=== PATIENT | male | born 1945 | race Caucasian/White ===

== ENCOUNTER → 2018-06-09 | Outpatient (CLI) | payer MEDICARE, OTHER | END | disposition home or self-care (01) | LOC: CFH 09:37 | PROVIDERS: ATTEND Emergency Medicine | DX: R10.32 Left lower quadrant pain (principal); R09.89 Other specified symptoms and signs involving the circulatory and respiratory systems | CPT/HCPCS: 76857; 93978 ==

== ENCOUNTER 2018-12-24 09:32 | Outpatient (CLI) | payer MEDICARE, OTHER | END 2018-12-24 23:59 | disposition home or self-care (01) | LOC: CFH 09:32 | PROVIDERS: ATTEND Registered Nurse | DX: I08.3 Combined rheumatic disorders of mitral, aortic and tricuspid valves (principal); I11.9 Hypertensive heart disease without heart failure; E78.5 Hyperlipidemia, unspecified | CPT/HCPCS: 93306 ==

== ENCOUNTER → 2019-05-24 | Outpatient (CLI) | payer MEDICARE, OTHER | END | disposition home or self-care (01) | LOC: CVU 08:25 | PROVIDERS: ATTEND Internal Medicine Cardiovascular Disease | DX: I08.3 Combined rheumatic disorders of mitral, aortic and tricuspid valves (principal) | CPT/HCPCS: 93306 ==

== ENCOUNTER → 2019-06-27 | Outpatient (CLI) | payer MEDICARE, OTHER ==
[~2019-06-27] MED LIST: AMLO-150 PO; ASCO10004 PO; ASPI-496 PO; ATOR20TA37 PO; CHOL5000 PO; CINN500C2 PO; CLEANSE PO; CYAN1TAB29 PO; HYDR12.517 PO; LACT1CAP37 PO; LEVO50TA64 PO; VALS320T2 PO
[2019-06-27 15:51] LABS: ALANINE AMINOTRANSFERASE 51 U/L (12-78); ALBUMIN 4.2 g/dL (3.4-5.0); ANION GAP 4 mmol/L (5-15); BASOPHILS # (AUTO) 0.02 x10^3/uL (0-0.1); BASOPHILS % (AUTO) 0 % (0-1); CALCIUM 8.8 mg/dL (8.5-10.1); CHLORIDE 107 mmol/L (98-107); CREATININE 1.09 mg/dL (0.7-1.3); EOSINOPHILS # (AUTO) 0.09 x10^3/uL (0-0.4); EOSINOPHILS % (AUTO) 2 % (1-7); LYMPHOCYTES # (AUTO) 0.92 x10^3/uL (1-3.4); LYMPHOCYTES % (AUTO) 23 % (22-44); MD NO; MEAN CORPUSCULAR HEMOGLOBIN 33.5 pg (27.5-34.5); MEAN CORPUSCULAR HGB CONC 33.4 g/dL (33.2-36.2); MEAN CORPUSCULAR VOLUME 100.1 fL (81-97); MEAN PLATELET VOLUME 8.7 fL (7.4-10.4); MONOCYTES # (AUTO) 0.59 x10^3/uL (0.2-0.8); MONOCYTES % (AUTO) 15 % (2-9); NEUTROPHILS # (AUTO) 2.32 x10^3/uL (1.8-6.8); NEUTROPHILS % (AUTO) 59 % (42-75); PLATELET COUNT 200 x10^3/uL (130-400); RED BLOOD COUNT 4.93 x10^6/uL (4.38-5.82); RED CELL DISTRIBUTION WIDTH 13.5 % (9.4-14.8)
[2019-06-27 15:53] LABS: ALKALINE PHOSPHATASE 82 U/L (45-117); BILIRUBIN,TOTAL 1.5 mg/dL (0.2-1.0); TOTAL PROTEIN 7.8 g/dL (6.4-8.2)
== END | disposition home or self-care (01) ==
LOC: CFH 12:27
PROVIDERS: ATTEND Internal Medicine Cardiovascular Disease
DX: I35.8 Other nonrheumatic aortic valve disorders (principal); I35.0 Nonrheumatic aortic (valve) stenosis; I49.3 Ventricular premature depolarization; I10 Essential (primary) hypertension; E03.9 Hypothyroidism, unspecified; E78.00 Pure hypercholesterolemia, unspecified; E78.2 Mixed hyperlipidemia; Z68.25 Body mass index [BMI] 25.0-25.9, adult
CPT/HCPCS: 36415; 71046; 80053; 85025

== ENCOUNTER 2019-06-28 09:49 | Day surgery (SDC) | payer MEDICARE, OTHER ==
[~2019-06-28] VITALS: Ht 179.1 cm; Wt 79.5 kg
[2019-06-28 10:21] VITALS: BP 153/82
[2019-06-28] MEDS ORDERED: LEVO50TA64 PO (10:57)
[2019-06-28] MEDS ORDERED: HYDR12.517 PO (10:57)
[2019-06-28] MEDS ORDERED: CYAN1TAB29 PO (10:57)
[2019-06-28] MEDS ORDERED: ASCO10004 PO (10:57)
[2019-06-28] MEDS ORDERED: ATOR20TA37 PO (10:57)
[2019-06-28] MEDS ORDERED: ASPI-496 PO (10:57)
[2019-06-28] MEDS ORDERED: CHOL5000 PO (10:57)
[2019-06-28] MEDS ORDERED: LACT1CAP37 PO (10:57)
[2019-06-28] MEDS ORDERED: VALS320T2 PO (10:57)
[2019-06-28] MEDS ORDERED: CLEANSE PO (10:57)
[2019-06-28] MEDS ORDERED: AMLO-150 PO (10:57)
[2019-06-28] MEDS ORDERED: CINN500C2 PO (10:57)
[2019-06-28] MEDS ORDERED: MIDAZOLAM 1 MG/ML, 5ML ONE (11:30)
[2019-06-28] MEDS ORDERED: VERAPAMIL 2.5 MG/ML, 2ML ONE (11:30)
[2019-06-28] MEDS ORDERED: NITROGLYCERIN 5 MG/ML, 10ML ONE (11:30)
[2019-06-28] MEDS ORDERED: FENTANYL PF 100 MCG/2ML ONE (11:30)
[2019-06-28] MEDS ORDERED: LIDOCAINE-MPF 1%, 5ML ONE (11:31)
[2019-06-28] MEDS ORDERED: HEPARIN 1,000 UNITS/ML, 10ML ONE (11:31)
[2019-06-28] MEDS ORDERED: ASPIRIN 325 MG TABLET EC PO ONE (12:00)
== END 2019-06-28 16:07 | disposition home or self-care (01) ==
LOC: CACL 09:49
PROVIDERS: ATTEND Internal Medicine Cardiovascular Disease
DX: I25.10 Atherosclerotic heart disease of native coronary artery without angina pectoris (principal); I10 Essential (primary) hypertension; E78.2 Mixed hyperlipidemia; I35.8 Other nonrheumatic aortic valve disorders; I49.3 Ventricular premature depolarization; E03.9 Hypothyroidism, unspecified; E78.00 Pure hypercholesterolemia, unspecified; K21.9 Gastro-esophageal reflux disease without esophagitis; Z79.82 Long term (current) use of aspirin; Z85.828 Personal history of other malignant neoplasm of skin
CPT/HCPCS: 93454; 99156; C1769; C1894; J1644; J2250; J3010; Q9967

== ENCOUNTER → 2019-07-05 | Outpatient (CLI) | payer MEDICARE, OTHER ==
[~2019-07-05] MED LIST changes: +PLEASE ENTER HEIGHT AND WEIGHT MC SCH; +SODIUM CHLORIDE 0.9% 1,000 ML IV SCH
== END | disposition home or self-care (01) ==
LOC: CVU 12:04
PROVIDERS: ATTEND Internal Medicine Cardiovascular Disease
DX: Z01.818 Encounter for other preprocedural examination (principal); I65.23 Occlusion and stenosis of bilateral carotid arteries; I35.0 Nonrheumatic aortic (valve) stenosis; I65.29 Occlusion and stenosis of unspecified carotid artery; R06.02 Shortness of breath; I10 Essential (primary) hypertension; E78.2 Mixed hyperlipidemia; I35.8 Other nonrheumatic aortic valve disorders; I49.3 Ventricular premature depolarization; E03.9 Hypothyroidism, unspecified; I70.0 Atherosclerosis of aorta
CPT/HCPCS: 71250; 74176; 93880; 94010; 94726; 94729

== ENCOUNTER 2019-07-20 18:09 | Emergency (ER) | payer MEDICARE, OTHER ==
[~2019-07-20] VITALS: Ht 180.3 cm; Wt 81.0 kg
[~2019-07-20 18:09] MED LIST changes: +ACET325T26 PO; +CLOP75TA PO; -PLEASE ENTER HEIGHT AND WEIGHT MC SCH; -SODIUM CHLORIDE 0.9% 1,000 ML IV SCH
--- NOTE | 2019-07-20 19:07 | NUR ---
THIS IS A 74 YO MALE COMING IN FOR POST-TAVR BLEEDING FROM INSERTION SITE. PATIENT HAD PROCEDURE DONE AT [facility] YESTERDAY, RELEASED TODAY AROUND NOON. PATIENT STATES HE NOTICED BLEEDING AND BRUISING AT INSERTION SITE AT RIGHT GROIN AROUND 1800 AND WAS TOLD TO COME TO ER. BLEEDING CONTROLLED AT THIS TIME. PATIENT A&OX4, VSS, NAD, SPO2 AND BP MONITORING IN PLACE. CALL LIGHT IN REACH. ICE PACK APPLIED TO RIGHT GROIN
[2019-07-20 19:53] VITALS: BP 161/87
--- NOTE | 2019-07-20 20:07 | NUR ---
PATIENT RESTING ON GURNEY, RESPIRATIONS EVEN AND UNLABORED, VSS, NAD, FAMILY IN ROOM. DENIES NEEDS AT THIS TIME
--- NOTE | 2019-07-20 21:27 | NUR ---
Patient/Caregiver given discharge instructions and they have confirmed that they understand the instructions. Patient ambulatory with steady gait.
== END 2019-07-20 22:28 | disposition home or self-care (01) ==
LOC: ED 20:30
DX: L76.32 Postprocedural hematoma of skin and subcutaneous tissue following other procedure (principal); I10 Essential (primary) hypertension; Z95.2 Presence of prosthetic heart valve
CPT/HCPCS: 36415; 85014; 85018; 99283

== ENCOUNTER 2019-08-19 09:31 | Outpatient (CLI) | payer MEDICARE, OTHER | END 2019-08-19 23:59 | disposition home or self-care (01) | LOC: CVU 09:31 | PROVIDERS: ATTEND Internal Medicine Cardiovascular Disease | DX: I08.1 Rheumatic disorders of both mitral and tricuspid valves (principal); I65.29 Occlusion and stenosis of unspecified carotid artery | CPT/HCPCS: 93306 ==

== ENCOUNTER → 2020-03-28 | Outpatient (CLI) | payer MEDICARE, OTHER ==
[~2020-03-28] MED LIST changes: +ASCO100018 PO; -ASCO10004 PO
== END | disposition home or self-care (01) ==
LOC: CVU 06:46
PROVIDERS: ATTEND Internal Medicine Cardiovascular Disease
DX: I08.8 Other rheumatic multiple valve diseases (principal); I11.9 Hypertensive heart disease without heart failure
CPT/HCPCS: 93306; 93356

== ENCOUNTER → 2021-01-09 | Outpatient (CLI) | payer MEDICARE, OTHER ==
[~2021-01-09] MED LIST changes: -LACT1CAP37 PO; +LACT1CAP47 PO
[2021-01-09 08:15] LABS: BASOPHILS % (AUTO) 1 % (0-1); EOSINOPHILS % (AUTO) 2 % (1-7); LYMPHOCYTES % (AUTO) 24 % (22-44); MEAN CORPUSCULAR HEMOGLOBIN 33.7 pg (27.5-34.5); MEAN CORPUSCULAR HGB CONC 34.1 g/dL (33.2-36.2); MEAN PLATELET VOLUME 7.9 fL (7.4-10.4); MONOCYTES % (AUTO) 18 % (2-9); NEUTROPHILS % (AUTO) 56 % (42-75); PLATELET COUNT 187 x10^3/uL (130-400); RED BLOOD COUNT 4.77 x10^6/uL (4.38-5.82); RED CELL DISTRIBUTION WIDTH 13.5 % (9.4-14.8)
[2021-01-09 08:25] LABS: ALBUMIN 3.9 g/dL (3.4-5.0); ANION GAP 6 mmol/L (5-15); CALCIUM 8.9 mg/dL (8.5-10.1); CHLORIDE 104 mmol/L (98-107)
[2021-01-09 08:50] LABS: ALANINE AMINOTRANSFERASE 44 U/L (12-78); ALKALINE PHOSPHATASE 82 U/L (45-117); BILIRUBIN,TOTAL 1.6 mg/dL (0.2-1.0); CHOL/HDL RATIO 1.8; CHOLESTEROL, TOTAL 183 mg/dL (140-239); CREATININE 1.01 mg/dL (0.7-1.3); FREE T4 (FREE THYROXINE) 1.02 ng/dL (0.76-1.46); HDL CHOL % 55 % (26-37); HDL CHOLESTEROL (DIRECT) 100 mg/dL (40-60); LDL CHOLESTEROL,CALCULATED 66 mg/dL (54-169); LDL/HDL RATIO 0.7 (0.5-3.0); TOTAL PROTEIN 7.7 g/dL (6.4-8.2); TRIGLYCERIDES 87 mg/dL (50-200); VLDL CHOLESTEROL 17 mg/dL (0-25)
[2021-01-09 08:56] LABS: FOLATE LEVEL > 20.0 ng/mL (3.1-17.5)
== END | disposition home or self-care (01) ==
LOC: LAB 07:58
PROVIDERS: ATTEND Internal Medicine Cardiovascular Disease
DX: E78.2 Mixed hyperlipidemia (principal); E03.9 Hypothyroidism, unspecified; D51.9 Vitamin B12 deficiency anemia, unspecified; I10 Essential (primary) hypertension; E78.5 Hyperlipidemia, unspecified
CPT/HCPCS: 36415; 80053; 80061; 82607; 82746; 84439; 84443; 85025